=== PATIENT | male | born 1990 | race African-American/Black ===

== ENCOUNTER 2018-10-11 21:18 | Emergency (ER) | payer OTHER ==
[~2018-10-11] VITALS: Wt 75.9 kg
[2018-10-11] MEDS ORDERED: KETOROLAC 30 MG INJ IM STA (21:48)
[2018-10-11] MEDS ORDERED: ONDANSETRON (ODT) 4 MG TAB ODT STA (21:48)
[2018-10-11] MEDS ORDERED: KETOROLAC 15 MG INJ IV STA (21:58)
[2018-10-11] MEDS ORDERED: ONDANSETRON 4 MG INJ IV STA (21:58)
[2018-10-11] MEDS ORDERED: SOD CHLORIDE 0.9% 1,000 ML IV STA (21:58)
[2018-10-11] MEDS ORDERED: TYL500 PO (23:17)
[2018-10-11] MEDS ORDERED: BISM262O50 PO (23:17)
[2018-10-11] MEDS ORDERED: ONDA4TAB14 PO (23:17)
[2018-10-11 23:41] VITALS: BP 129/60; PULSE 88; RESP 20
--- NOTE | 2018-10-12 04:27 | ERD ---
ER Documentation Chief Complaint Chief Complaint AP, VOMIT, DIARRHEA, CHILLS X'S 2 DAYS HPI 28-year-old male presents for abdominal pain, nausea, vomiting times 2 days. States that the abdominal pain is mild rated 5 out of 10. He states that he currently does not have abdominal pain. The abdominal pain was located in the lower part of the abdomen. He states he has vomited multiple times and describes his diarrhea is watery. Has any blood or dark stools. He has had prior similar symptoms when he had food poisoning. He denies chest pain or shortness of breath. ROS All systems reviewed and are negative except as per history of present illness. Medications Home Meds Active Scripts Bismuth Subsalicylate (BISMUTH) 262 Mg/15 Ml Oral.susp, 262 MG PO Q6H PRN for DIARRHEA, #1 BOTTLE Prov:LANG KENNEY 10/11/18 Acetaminophen* (Tylenol*) 500 Mg Tab, 500 MG PO Q4H PRN for MILD PAIN LEVEL 1-3, #30 TAB Prov:LANG KENNEY 10/11/18 Ondansetron (Ondansetron Odt) 4 Mg Tab.rapdis, 4 MG PO Q6H PRN for NAUSEA AND/OR VOMITING, #15 TAB Prov:LANG KENNEY 10/11/18 Allergies Allergies: Coded Allergies: No Known Allergy (Unverified , 10/11/18) PMhx/Soc Medical and Surgical Hx: pt denies Medical Hx, pt denies Surgical Hx Hx Alcohol Use: No Hx Substance Use: No Hx Tobacco Use: No Smoking Status: Never smoker Physical Exam Vitals Vital Signs Date Temp Pulse Resp B/P (MAP) Pulse Ox O2 O2 Flow FiO2 Time Delivery Rate 10/11/18 99.1 88 20 129/60 99 Room Air 23:41 (83) 10/11/18 97.9 84 18 120/69 96 21:20 (86) Physical Exam Const: No acute distress Resp: Clear to auscultation bilaterally Cardio: Regular rate and rhythm, no murmurs Abd: Soft, non tender, non distended. Normal bowel sounds, no McBurney's point tenderness, no Ho sign, no guarding or rebound noted. Skin: No petechiae or rashes Back: No midline or flank tenderness Ext: No cyanosis, or edema Neur: Awake and alert Psych: Normal Mood and Affect Result Diagram: 10/11/18220910/11/182209 Results 24 hrs Laboratory Tests Test 10/11/18 22:10 10/11/18 22:47 White Blood Count 15.5 10^3/ul Red Blood Count 5.74 10^6/ul Hemoglobin 16.4 g/dl Hematocrit 50.3 % Mean Corpuscular Volume 87.6 fl Mean Corpuscular Hemoglobin 28.6 pg Mean Corpuscular Hemoglobin Concent 32.6 g/dl Red Cell Distribution Width 14.3 % Platelet Count 269 10^3/UL Mean Platelet Volume 9.7 fl Immature Granulocytes % 0.300 % Neutrophils % 84.0 % Lymphocytes % 7.7 % Monocytes % 6.8 % Eosinophils % 1.0 % Basophils % 0.2 % Nucleated Red Blood Cells % 0.0 /100WBC Immature Granulocytes # 0.040 10^3/ul Neutrophils # 13.0 10^3/ul Lymphocytes # 1.2 10^3/ul Monocytes # 1.1 10^3/ul Eosinophils # 0.2 10^3/ul Basophils # 0.0 10^3/ul Nucleated Red Blood Cells # 0.0 10^3/ul Sodium Level 144 mmol/L Potassium Level 4.4 mmol/L Chloride Level 105 mmol/L Carbon Dioxide Level 23 mmol/L Anion Gap 16 Blood Urea Nitrogen 19 mg/dl Creatinine 1.18 mg/dl Est Glomerular Filtrat Rate mL/min > 60 mL/min Glucose Level 148 mg/dl Calcium Level 10.2 mg/dl Total Bilirubin 0.6 mg/dl Direct Bilirubin 0.00 mg/dl Indirect Bilirubin 0.6 mg/dl Aspartate Amino Transf (AST/SGOT) 27 IU/L Alanine Aminotransferase (ALT/SGPT) 26 IU/L Alkaline Phosphatase 93 IU/L Total Protein 7.9 g/dl Albumin 5.1 g/dl Globulin 2.80 g/dl Albumin/Globulin Ratio 1.82 Lipase 44 U/L Urine Color YELLOW Urine Clarity SLIGHTLY CLOUDY Urine pH 6.0 Urine Specific [place] 1.035 Urine Ketones 2+ mg/dL Urine Nitrite NEGATIVE mg/dL Urine Bilirubin NEGATIVE mg/dL Urine Urobilinogen 1+ mg/dL Urine Leukocyte Esterase NEGATIVE Anne/ul Urine Microscopic RBC 5 /HPF Urine Microscopic WBC 1 /HPF Urine Bacteria FEW /HPF Urine Mucus MANY /HPF Urine Hemoglobin NEGATIVE mg/dL Urine Glucose NEGATIVE mg/dL Urine Total Protein 2+ mg/dl Current Medications Medications Dose Sig/Makayla Start Time Status Last (Trade) Ordered Route PRN Stop Time Admin Dose Reason Admin Ketorolac 30 mg ONCE STAT 10/11/18 DC Tromethamine IM 21:48 (Toradol) 10/11/18 21:59 Ondansetron 4 mg ONCE STAT 10/11/18 DC HCl (Zofran ODT 21:48 Odt) 10/11/18 21:59 Sodium 1,000 ml @ Q1H STAT 10/11/18 DC 10/11/18 Chloride 1,000 mls/hr IV 21:58 22:03 10/11/18 22:57 Ondansetron 4 mg ONCE STAT 10/11/18 DC 10/11/18 HCl (Zofran IV 21:58 22:05 Inj) 10/11/18 21:59 Ketorolac 15 mg ONCE STAT 10/11/18 DC 10/11/18 Tromethamine IV 21:58 22:05 (Toradol) 10/11/18 21:59 Procedures/MDM Medical Decision Making: Differential diagnosis includes but not limited to acute gastroenteritis, appendicitis, cholecystitis, pancreatitis. Patient appeared well on physical exam. Nontoxic appearing. Abdominal examination was relatively benign. There is low suspicion for an acute abdomen at this point. Labs: CBC showed no anemia, WBC was 15.5. Likely due to stress reaction. CMP showed no electrolyte abnormalities, there was normal kidney and liver function Lipase was normal on Patient likely has an acute gastroenteritis. ED course: Patient was given Toradol, Zofran, IV fluids. Symptoms improved with treatment. Prescription(s): Patient given prescription for Zofran, bismuth, Tylenol. Patient advised to follow up with PCP in 1-2 days. Patient advised to return to ED for new or worsening symptoms. Patient stable on discharge from the ED. Disclaimer: Inadvertent spelling and grammatical errors are likely due to EHR/di ctation software use and do not reflect on the overall quality of patient care. Also, please note that the electronic time recorded on this note does not necessarily reflect the actual time of the patient encounter. Departure Diagnosis: Primary Impression: Nausea and vomiting Condition: Fair Patient Instructions: Nausea and Vomiting-Adult Referrals: COMMUNITY CLINICS YOU HAVE RECEIVED A MEDICAL SCREENING EXAM AND THE RESULTS INDICATE THAT YOU DO NOT HAVE A CONDITION THAT REQUIRES URGENT TREATMENT IN THE EMERGENCY DEPARTMENT. FURTHER EVALUATION AND TREATMENT OF YOUR CONDITION CAN WAIT UNTIL YOU ARE SEEN IN YOUR DOCTORS OFFICE WITHIN THE NEXT 1-2 DAYS. IT IS YOUR RESPONSIBILITY TO MAKE AN APPOINTMENT FOR FOLOW-UP CARE. IF YOU HAVE A PRIMARY DOCTOR --you should call your primary doctor and schedule an appointment IF YOU DO NOT HAVE A PRIMARY DOCTOR YOU CAN CALL OUR PHYSICIAN REFERRAL HOTLINE AT IF YOU CAN NOT AFFORD TO SEE A PHYSICIAN YOU CAN CHOSE FROM THE FOLLOWING [facility] CLINICS [facility] [id number] [employer] [facility] [address] [employer] [employer] [facility] [address] [facility] [address] [facility] [address] [facility]. [facility]. [address] Additional Instructions: Call your primary care doctor TOMORROW for an appointment during the next 1-2 days.See the doctor sooner or return here if your condition worsens before your appointment time. LANG KENNEY DO Oct 12, 2018 04:27
== END 2018-10-11 23:35 | disposition home or self-care (01) ==
LOC: FTE 21:18
DX: R11.2 Nausea with vomiting, unspecified (principal)
CPT/HCPCS: 36415; 80053; 81001; 83690; 85025; 96374; 96375; J1885; J2405; J7030; Z7502